=== PATIENT | male | born 1965 | race Caucasian/White ===

== ENCOUNTER 2020-10-22 07:28 | Outpatient (REF) | payer BC, SELFPAY ==
[2020-10-22 11:30] LABS: Glucose Urine UA NEG (NEG); Leukocyte Esterase Urine NEG (NEG); Nitrite Urine NEG (NEG); PH 5.5 (5.0-8.0); Specific Gravity - Urine 1.025 (1.005-1.025); Urine Blood NEG (NEG); Urine Ketones NEG (NEG); Urine Protein NEG (NEG-TRACE)
[2020-10-22 11:32] LABS: Appearance Urine CLEAR; Color Urine YELLOW; Hematocrit 48.6 % (42-52); Hemoglobin 16.1 g/dl (14.0-18.0); Mean Corpuscular HGB Conc 33.1 g/dl (31.0-36.0); Mean Corpuscular Volume 93.5 fL (80-98); Mean Platelet Volume 10.2 fL (9.4-12.4); Platelet Count 221 X10*3/uL (160-400); Red Cell Distribution Width 11.9 % (11.0-16.0); White Blood Count 5.6 X10*3/uL (4.8-10.8)
[2020-10-22 11:55] LABS: Alanine Aminotransferase 32 U/L (0-40); Albumin Level 4.3 g/dL (3.5-5.0); Alkaline Phosphatase 60 U/L (39-117); Anion Gap 12 (12-20); Aspartate Amino Transferase 27 U/L (5-37); Bilirubin Total 0.9 mg/dL (0.0-1.0); Blood Urea Nitrogen 13 mg/dL (9-16); Calcium 8.8 mg/dL (8.4-10.2); Carbon Dioxide 28 mmol/L (22-29); Chloride 105 mmol/L (96-108); Cholesterol 215 mg/dL; Estimated Glomerular Filt Rate > 60; Glucose Fasting 96 mg/dL (60-99); HDL Cholesterol 57 mg/dL; LDL Cholesterol Calculated 138 mg/dl; Potassium 4.4 mmol/L (3.3-5.1); Sodium 141 mmol/L (135-145); Total Protein 7.2 g/dL (6.5-8.0); Triglycerides 102 mg/dL
[2020-10-22 12:22] LABS: Free T4 (Free Thyroxine) 0.81 ng/dL (0.71-1.85); Prostate Specific Antigen Scr 0.82 ng/mL (<0.05-4.0); Thyroid Stimulating Hormone 2.64 uIU/mL (0.32-4.0)
== END 2020-10-22 07:29 | disposition home or self-care (01) ==
LOC: HO.HMGCLDS 07:28
PROVIDERS: PCP Internal Medicine; Visit Provider Internal Medicine
DX: K22.70 Barrett's esophagus without dysplasia (principal); E78.2 Mixed hyperlipidemia; J45.40 Moderate persistent asthma, uncomplicated; Z12.5 Encounter for screening for malignant neoplasm of prostate
CPT/HCPCS: 36415; 80053; 80061; 81003; 84153; 84439; 84443; 85027

== ENCOUNTER 2021-05-26 11:10 | Outpatient (REF) | payer BC, SELFPAY | END 2021-05-26 11:11 | disposition home or self-care (01) | LOC: HO.LNP 11:10 | PROVIDERS: Visit Provider Physician Assistant Medical | DX: J01.90 Acute sinusitis, unspecified (principal); Z20.822 Contact with and (suspected) exposure to COVID-19 | CPT/HCPCS: U0003; U0005 ==

== ENCOUNTER 2021-10-25 08:36 | Outpatient (REF) | payer BC, SELFPAY ==
[2021-10-25 11:38] LABS: Appearance Urine HAZY; Color Urine YELLOW; Glucose Urine UA NEG (NEG); Leukocyte Esterase Urine NEG (NEG); Nitrite Urine NEG (NEG); Specific Gravity - Urine 1.015 (1.005-1.025); Urine Blood NEG (NEG); Urine Ketones NEG (NEG); Urine Protein NEG (NEG-TRACE)
[2021-10-25 11:40] LABS: Hematocrit 46.6 % (42.0-52.0); Hemoglobin 15.4 g/dl (14.0-18.0); Mean Corpuscular Hemoglobin 31.6 pg (27.0-33.0); Mean Corpuscular Volume 95.7 fL (80.0-98.0); Platelet Count 208 X10*3/uL (160-400); Red Blood Count 4.87 X10*6/uL (4.60-5.80); White Blood Count 4.9 X10*3/uL (4.8-10.8)
[2021-10-25 12:08] LABS: RBC Urine 0 /HPF (0); WBC Urine 0 /HPF (0-4)
[2021-10-25 12:10] LABS: Alanine Aminotransferase 24 U/L (0-40); Albumin Level 4.2 g/dL (3.5-5.0); Alkaline Phosphatase 47 U/L (39-117); Anion Gap 11 (12-20); Aspartate Amino Transferase 27 U/L (5-37); Bilirubin Total 1.1 mg/dL (0.0-1.0); Blood Urea Nitrogen 12 mg/dL (9-16); Calcium 9.7 mg/dL (8.4-10.2); Carbon Dioxide 29 mmol/L (22-29); Chloride 107 mmol/L (96-108); Cholesterol 206 mg/dL; Estimated Glomerular Filt Rate > 60; Glucose Fasting 94 mg/dL (60-99); HDL Cholesterol 76 mg/dL; LDL Cholesterol Calculated 116 mg/dl; Potassium 4.6 mmol/L (3.3-5.1); Sodium 142 mmol/L (135-145); Total Protein 6.9 g/dL (6.5-8.0); Triglycerides 70 mg/dL
[2021-10-25 12:38] LABS: TSH reflex Free T4 2.05 uIU/mL (0.32-4.0)
== END 2021-10-25 08:37 | disposition home or self-care (01) ==
LOC: HO.HMGCLDS 08:36
PROVIDERS: PCP Internal Medicine; Visit Provider Internal Medicine
DX: Z00.00 Encounter for general adult medical examination without abnormal findings (principal); E03.9 Hypothyroidism, unspecified
CPT/HCPCS: 36415; 80053; 80061; 81001; 84443; 85027

== ENCOUNTER 2022-10-24 06:55 | Outpatient (REF) | payer BC, SELFPAY ==
[2022-10-24 11:52] LABS: Hemoglobin 15.3 g/dl (14.0-18.0); Mean Corpuscular Hemoglobin 31.4 pg (27.0-33.0); Mean Corpuscular Volume 92.4 fL (80.0-98.0); Mean Platelet Volume 9.6 fL (9.4-12.4); Platelet Count 233 X10*3/uL (160-400); Red Blood Count 4.87 X10*6/uL (4.60-5.80); Red Cell Distribution Width 12.4 % (11.0-16.0); White Blood Count 4.9 X10*3/uL (4.8-10.8)
[2022-10-24 11:54] LABS: Appearance Urine Clear; Color Urine Yellow; Glucose Urine UA Negative (Negative); Leukocyte Esterase Urine Negative (Negative); Nitrite Urine Negative (Negative); PH 8.5 (5.0-9.0); Specific Gravity - Urine 1.015 (1.005-1.025); Urine Blood Negative (Negative); Urine Ketones Negative (Negative); Urine Protein Negative (Neg-Trace)
[2022-10-24 11:59] LABS: Bacteria Urine None Seen (None Seen); Hyaline Casts Urine 0-2 /LPF (0-2); RBC Urine 0-2 /HPF (0-2); Squamous Epithelial Cell Urine 0-2 /HPF (0-2); WBC Urine 0-5 /HPF (0-5)
[2022-10-24 12:31] LABS: Alanine Aminotransferase 20 U/L (0-40); Albumin Level 4.3 g/dL (3.5-5.0); Alkaline Phosphatase 56 U/L (39-117); Anion Gap 12 (12-20); Aspartate Amino Transferase 24 U/L (5-37); Blood Urea Nitrogen 12 mg/dL (9-16); Calcium 9.2 mg/dL (8.4-10.2); Carbon Dioxide 26 mmol/L (22-29); Chloride 109 mmol/L (96-108); Cholesterol 222 mg/dL; Estimated Glomerular Filt Rate > 60; Glucose Fasting 96 mg/dL (60-99); HDL Cholesterol 74 mg/dL; LDL Cholesterol Calculated 125 mg/dl; Potassium 4.4 mmol/L (3.3-5.1); Sodium 143 mmol/L (135-145); Total Protein 6.9 g/dL (6.5-8.0); Triglycerides 115 mg/dL
[2022-10-24 12:48] LABS: Prostate Specific Antigen Scr 1.31 ng/mL (<0.05-4.0)
== END 2022-10-24 06:56 | disposition home or self-care (01) ==
LOC: HO.HMGCLDS 06:55
PROVIDERS: PCP Internal Medicine; Visit Provider Internal Medicine
DX: Z00.00 Encounter for general adult medical examination without abnormal findings (principal); E03.9 Hypothyroidism, unspecified; Z12.5 Encounter for screening for malignant neoplasm of prostate
CPT/HCPCS: 36415; 80053; 80061; 81001; 84153; 84443; 85027

== ENCOUNTER 2023-03-01 12:55 | Outpatient (REF) | payer BC, SELFPAY | END 2023-03-01 12:56 | disposition home or self-care (01) | LOC: HO.SH 12:55 | PROVIDERS: Visit Provider Internal Medicine | DX: Z01.118 Encounter for examination of ears and hearing with other abnormal findings (principal); H90.3 Sensorineural hearing loss, bilateral | CPT/HCPCS: 92557; 92625 ==

== ENCOUNTER 2023-10-24 06:54 | Outpatient (REF) | payer BC, SELFPAY ==
[2023-10-24 11:21] LABS: MANUAL DIFF FLAG NO
[2023-10-24 11:22] LABS: Basophils Percent Auto 0.7 % (0-2); Eosinophils Absolute Auto 0.2 X10*3/uL (0.0-0.4); Eosinophils Percent Auto 4.9 % (0-4); Hematocrit 45.2 % (42.0-52.0); Hemoglobin 15.4 g/dl (14.0-18.0); Imm Gran Abs Auto 0.02 X10*3/uL (0.00-0.03); Imm Gran Pct Auto 0.4 % (0.0-0.4); Lymphocytes Absolute Auto 1.6 X10*3/uL (1.2-4.9); Lymphocytes Percent Auto 35.2 % (20-40); Mean Corpuscular HGB Conc 34.1 g/dl (31.0-36.0); Mean Corpuscular Hemoglobin 31.4 pg (27.0-33.0); Mean Corpuscular Volume 92.2 fL (80.0-98.0); Mean Platelet Volume 9.5 fL (9.4-12.4); Monocytes Absolute Auto 0.3 X10*3/uL (0.1-1.2); Monocytes Percent Auto 7.5 % (2-11); Neutrophils Absolute Auto 2.3 x10*3/uL (2.0-8.3); Neutrophils Percent Auto 51.3 % (45-73); Platelet Count 227 X10*3/uL (160-400); Red Cell Distribution Width 12.1 % (11.0-16.0); White Blood Count 4.5 X10*3/uL (4.8-10.8)
[2023-10-24 11:23] LABS: Appearance Urine Clear; Color Urine Yellow; Glucose Urine UA Negative (Negative); Leukocyte Esterase Urine Negative (Negative); Nitrite Urine Negative (Negative); PH 5.5 (5.0-9.0); Urine Blood Negative (Negative); Urine Ketones Negative (Negative); Urine Protein Negative (Neg-Trace)
[2023-10-24 11:33] LABS: Bacteria Urine None Seen (None Seen); Hyaline Casts Urine 0-2 /LPF (0-2); RBC Urine 0-2 /HPF (0-2); Squamous Epithelial Cell Urine 0-2 /HPF (0-2); WBC Urine 0-5 /HPF (0-5)
[2023-10-24 12:31] LABS: PSA,Total (Free>4and<10) 0.87 ng/mL (0.00-4.00)
[2023-10-24 13:54] LABS: Alanine Aminotransferase 19 U/L (0-40); Albumin Level 4.3 g/dL (3.5-5.0); Alkaline Phosphatase 47 U/L (39-117); Anion Gap 11 (12-20); Aspartate Amino Transferase 23 U/L (5-37); Bilirubin Total 0.7 mg/dL (0.0-1.0); Blood Urea Nitrogen 13 mg/dL (9-16); Calcium 9.7 mg/dL (8.4-10.2); Carbon Dioxide 25 mmol/L (22-29); Chloride 110 mmol/L (96-108); Cholesterol 224 mg/dL (<200); Estimated Glomerular Filt Rate > 60; Glucose Fasting 94 mg/dL (60-99); HDL Cholesterol 86 mg/dL (>40); LDL Cholesterol Calculated 123 mg/dL (<100); Potassium 4.3 mmol/L (3.3-5.1); Sodium 142 mmol/L (135-145); TSH reflex Free T4 2.53 uIU/mL (0.32-4.0); Total Protein 7.2 g/dL (6.5-8.0); Triglycerides 79 mg/dL (<150)
== END 2023-10-24 06:55 | disposition home or self-care (01) ==
LOC: HO.HMGCLDS 06:54
PROVIDERS: PCP Internal Medicine; Visit Provider Internal Medicine
DX: Z00.00 Encounter for general adult medical examination without abnormal findings (principal); Z12.5 Encounter for screening for malignant neoplasm of prostate; E03.9 Hypothyroidism, unspecified; J45.909 Unspecified asthma, uncomplicated
CPT/HCPCS: 36415; 80053; 80061; 81001; 84153; 84443; 85025

== ENCOUNTER 2023-11-15 12:51 | Outpatient (AMB) | payer BC, SELFPAY ==
[2023-11-15 13:01] VITALS: BP 110/66; PULSE 65; O2SAT 97; BMI 25.4
--- NOTE | 2023-11-15 13:01 | A.OFFPC_ITS ---
Vital Signs 11/15/23 13:01 Height 5 ft 9 in Weight 172 lb BMI 25.4 BP 110/66 Blood Pressure Location Lt brachial Position Sitting Pulse 65 Pulse Source Pulse Oximeter Pulse Oximetry (%) 97 Oxygen Delivery Method Room Air Intake Visit Reasons: PE Intake Note: Pt is here today for PE. Allergies No Known Allergies [No Known Allergies*] Allergy (Verified 11/15/23 13:03) Medication List - Last Reconciled 11/15/23 by Reema Guy MD budesonide-formoterol 80-4.5 mcg/actuation 2 puffs PO BID levothyroxine 50 mcg PO DAILY omeprazole 20 mg PO DAILY Tobacco use date assessed: 11/15/23 Dental Screening Dental Screen Date: 11/15/23 Did you have a dental visit in the last 12 months?: Yes Did you have a dental problem in the last 6 months where you did not have access to dental care?: No Was dental information given to patient?: Patient has dentist HPI PE HPI Details Pt presents for PE. PT c/o chronic R shoulder pain for years getting w orse for the last few months. Patient denies any recent injury. The pain is worse when patient is trying to lift or carry something heavy. FORMERLY [facility], [facility]–1983 Medical History (Updated 11/15/23 @ 13:48 by Reema Guy MD) Leg pain Annual physical exam Hyperlipidemia ETOH abuse Asthma Allergic rhinitis Esophagitis Genital herpes Surgical History H/O colonoscopy History of esophagogastroduodenoscopy (EGD) Social History Housing: House Alcohol intake: current Alcohol intake frequency: a few times a week Patient Tobacco Use Status: Never used Tobacco e-Cigarette/Vaping Use: Never Used Current occupational status: employed Cognitive needs: No Hearing needs: No Vision needs: No Questionnaire PHQ-9 Over the last 2 weeks, how often have you been bothered by any of the following problems? 1. Little interest or pleasure in doing things: not at all 2. Feeling down, depressed, or hopeless: not at all 3. Trouble falling or staying asleep, or sleeping too much: not at all 4. Feeling tired or having little energy: not at all 5. Poor appetite or overeating: not at all 6. Feeling bad about yourself - or that you are a failure or have let yourself or your family down: not at all 7. Trouble concentrating on things, such as reading the newspaper or watching television: not at all 8. Moving or speaking so slowly that other people could have noticed. Or the opposite - being so fidgety or restless that you have been moving around a lot more than usual: not at all 9. Thoughts that you would be better off or of hurting yourself in some way: not at all Total score: 0 Depression Screening Interpretation: Negative Depression Screening Done: Yes 45272 - PHQ-9 Billing: Yes Source: Developed by Drs. Contreras Booker, Alejandra Chowdary, Ashish Contreras and colleagues, with an educational leo from [employer]. Thrive Questionnaire Date Thrive assessed: 11/15/23 I am a: Patient What is your living situation today?: I have a steady place to live Within the past 12 months, did the food you bought not last and you didn't have the money to get more?: Never true Within the past 12 months, did you worry whether your food would run out before you got money to buy more?: Never true Do you have trouble paying for medicines?: No Do you have trouble getting transportation to medical appointments?: No Do you have trouble paying your heating and electricity bill?: No Do you have trouble taking care of your child, family member or friend?: No Do you have trouble with day-to-day activities such as bathing, preparing meals, shopping, managing finances, etc.?: No Are you currently unemployed and looking for a job?: No Are you interested in more education?: No Please select the resources that you would like help with: None Currently or been in a relationship where the following occur: no concerns reported THRIVE Score: 0 AUDIT C Alcohol Use Questionnaire (AUDIT-C) 1. How often do you have a drink containing alcohol?: 4 or more times a week 2. How many drinks containing alcohol do you have on a typical day when you are drinking?: 1 or 2 3. How often do you have six or more drinks on one occasion?: Monthly Total Score: 6 LACEY-7 AMB Questionnaire LACEY-7 Date LACEY - 7 assessed: 11/15/23 Feeling nervous, anxious, or on edge: 0 = Not at all Not being able to stop or control worryin = Not at all Worrying too much about different things: 0 = Not at all Trouble relaxin = Not at all Being so restless that it is hard to sit still: 0 = Not at all Becoming easily annoyed or irritable: 0 = Not at all Feeling afraid as if something awful might happen: 0 = Not at all Total LACEY-7 score (0-4 normal; 5-9 mild; 10-14 moderate; 15-21 severe): 0 Source: Developed by Drs. Contreras Booker, Alejandra Chowdary, Ashish Contreras and colleagues, with an educational leo from [employer]. Review of Systems Const All systems reviewed & are unremarkable except as noted in HPI and below Reports no additional complaints Eyes Reports no additional complaints ENT Reports no additional complaints Card Reports no additional complaints Resp Reports no additional complaints GI Reports no additional complaints Reports no additional complaints Physical exam (Primary Care) Vital Signs: Last Vital Signs Pulse 65 11/15/23 13:01 BP 110/66 11/15/23 13:01 Pulse Ox 97 11/15/23 13:01 Oxygen Delivery Method Room Air 11/15/23 13:01 BMI result Body Mass Index 25.4 Tobacco/Smoking Status: Tobacco use Status Tobacco use date assessed 11/15/23 11/15/23 13:09 Patient Tobacco Use Status Never used Tobacco 11/15/23 13:09 e-Cigarette/Vaping Use Never Used 11/15/23 13:09 PHQ-9: PHQ-9 Score PHQ-9: Total score 0 11/15/23 13:10 Depression Screening Interpretation: Negative Thrive Assessment: Date of Thrive Assessment Date Thrive assessed 11/15/23 11/15/23 13:10 Currently or been in a relationship where the following occur: no concerns reported Const General: no acute distress HENMT Head: Yes normal to inspection Ears: hearing grossly normal bilaterally Face and sinus: Yes normal facial exam Throat: Yes posterior oropharynx normal Neck Neck: Yes supple Resp Effort & Inspection: normal respiratory effort Auscultation: clear to auscultation bilaterally Cardio Rhythm: regular rhythm Heart sounds: S1 normal heart sound present and S2 normal heart sound present GI Inspection: Yes normal to inspection Palpation (GI): Soft to palpation Percussion: Yes normal to percussion Auscultation: normal bowel sounds Extrem Other: Anterior aspect tenderness on the right shoulder there is no joint deformity swelling, there slightly decreased range of motion with abduction Assessment and Plan Assessment & Plan (1) Shoulder pain, right: Code(s): M25.511 - Pain in right shoulder Plan: Check shoulder x-ray, refer for physical therapy if the pain persists patient MRI will be obtained (2) Tinnitus: Comment: SYMMETRICAL MODERATE HEARING LOSS 11/09 Code(s): H93.19 - Tinnitus, unspecified ear (3) Asthma: Code(s): J45.909 - Unspecified asthma, uncomplicated Plan: Continue Symbicort (4) Hypothyroidism: Code(s): E03.9 - Hypothyroidism, unspecified Plan: Continue levothyroxine (5) Annual physical exam: Code(s): Z00.00 - Encounter for general adult medical examination without abnormal findings Plan: Well-balanced diet regular physical activity discussed with the patient. Continue PPI for chronic GERD Chang's esophagus follow-up with the GI for endoscopy and colonoscopy Orders: Orders PT Evaluation and Treatment Today M25.511 - Pain in right shoulder Comprehensive [place]. Panel Fast 1 Year E03.9 - Hypothyroidism, unspecified, J45.909 - Unspecified asthma, uncomplicated, Z00.00 - Encounter for general adult medical examination without abnormal findings Complete Blood Count Auto Diff 1 Year E03.9 - Hypothyroidism, unspecified, J45.909 - Unspecified asthma, uncomplicated, Z00.00 - Encounter for general adult medical examination without abnormal findings TSH reflex Free T4 1 Year E03.9 - Hypothyroidism, unspecified, J45.909 - Unspecified asthma, uncomplicated, Z00.00 - Encounter for general adult medical examination without abnormal findings UA w Microscopic 1 Year E03.9 - Hypothyroidism, unspecified, J45.909 - Unspecified asthma, uncomplicated, Z00.00 - Encounter for general adult medical examination without abnormal findings XR shoulder RT min 2V Today M25.511 - Pain in right shoulder Lipid Panel 1 Year E03.9 - Hypothyroidism, unspecified, J45.909 - Unspecified asthma, uncomplicated, Z00.00 - Encounter for general adult medical examination without abnormal findings PSA,Total (Free>4and<10) 1 Year E03.9 - Hypothyroidism, unspecified, J45.909 - Unspecified asthma, uncomplicated, Z00.00 - Encounter for general adult medical examination without abnormal findings Coding Level of Care Code Est Pt Prev Care 40-64y(53586) Diagnoses Shoulder pain, right M25.511 Tinnitus H93.19 Asthma J45.909 Hypothyroidism E03.9 Annual physical exam Z00.00
== END 2023-11-15 13:48 | disposition home or self-care (01) ==
PROVIDERS: Visit Provider Internal Medicine
DX: M25.511 Pain in right shoulder (principal); H93.19 Tinnitus, unspecified ear; J45.909 Unspecified asthma, uncomplicated; E03.9 Hypothyroidism, unspecified; Z00.00 Encounter for general adult medical examination without abnormal findings
CPT/HCPCS: 99396

== ENCOUNTER 2023-11-19 15:26 | Outpatient (REF) | payer BC, SELFPAY ==
--- NOTE | ~2023-11-19 | XR_ITS ---
EXAMINATION: XR SHOULDER, RIGHT CLINICAL INFORMATION: Right shoulder pain COMPARISON: None available. TECHNIQUE: AP external rotation, Grashey, scapular Y, and axillary views of the right shoulder. FINDINGS: Acromioclavicular joint space narrowing. Humeral joint is preserved. No fracture or dislocation. Visualized lung and ribs are unremarkable. XR/XR shoulder RT min 2V IMPRESSION: Mild degenerative changes.
== END 2023-11-19 15:27 | disposition home or self-care (01) ==
LOC: HO.HMGCX 15:26
PROVIDERS: PCP Internal Medicine; Visit Provider Internal Medicine
DX: M25.511 Pain in right shoulder (principal)
CPT/HCPCS: 73030

== ENCOUNTER 2024-08-18 09:42 | Outpatient (REF) | payer BC, SELFPAY ==
[2024-08-18 16:08] LABS: Influenza A PCR NEGATIVE (Negative); Influenza B PCR NEGATIVE (Negative); Resp Syncy Virus RNA Qual PCR NEGATIVE (Negative); SARS COV2 PCR INHOUSE NEGATIVE (Negative)
== END 2024-08-18 09:43 | disposition home or self-care (01) ==
LOC: HO.LAB 09:42
PROVIDERS: PCP Internal Medicine; Visit Provider Physician Assistant
DX: J06.9 Acute upper respiratory infection, unspecified (principal)
CPT/HCPCS: 0241U

== ENCOUNTER 2024-08-18 09:42 | Outpatient (AMB) | payer BC, SELFPAY ==
--- NOTE | 2024-08-18 10:32 | AM.OFFWIN_ITS ---
Intake Vital Signs 08/18/24 10:36 Height 5 ft 9 in Weight 165 lb BMI 24.4 BP 130/90 H Blood Pressure Location Rt brachial Position Sitting Pulse 59 Pulse Source Pulse Oximeter Temp 97.8 F Temp Source Oral Pulse Oximetry (%) 98 Oxygen Delivery Method Room Air Intake Visit Reasons: EP Head cold symptoms Intake Note: Patient here for head congestion and cough that has been present since before katt. Patient Tobacco Use Status: Never used Tobacco Allergies No Known Allergies [No Known Allergies*] Allergy (Verified 08/18/24 10:36) Do you need a note to return to daycare/school/sports/work: No HPI HPI Comments History of Present Illness Details History - The patient is a 58-year-old male pres enting with upper respiratory symptoms, including nasal congestion and cough. - Approximately seven days ago, he devel oped nasal congestion with yellow discharge, primarily present in the mornings. - His symptoms progressed over the weeke nd to include coughing. He denies any febrile episodes. - Household members have exhibited simil ar symptoms, suggesting potential communicable viral etiology. - The patient performed a COVID-19 test, which resulted negative. - Current symptom management includes us e of [id number] medications: DayQuil, NyQuil, and Mucinex D, which provided limited symptom relief. - The patient has a history of asthma, m anaged with Budesonide inhaler used once daily mornings, and no exacerbation of asthma symptoms has been noted. Physical Exam General: Cooperative, healthy appearing, comfortable and no acute distress Orientation/consciousness: Patient oriented x3 Limitations: No limitations Head: Normal to inspection Ears: Hearing grossly normal bilaterally, external ears normal and TM's normal bilaterally, some cerumen present in the left ear Nose: Normal external nose present, Normal nares present and No nasal discharge present Face and sinus: Normal facial exam and Yes sinuses nontender Mouth: Normal oral and palatal mucosa present and moist mucous membranes Throat: Yes tonsils normal, Yes uvula midline. Posterior oropharynx erythema Eyes: Appearance normal, both eyes and all related structures Neck: Normal visual inspection Respiratory: Clear to auscultation bilaterally. Normal respiratory effort, able to speak in complete sentences, no respiratory distress, not tachypneic, no tripod positioning and no use of accessory muscles Cardiovascular: Regular rate and rhythm. Normal S1 and S2 Skin: No rashes or lesions noted Neuro: Patient oriented x3 Extremities: Normal to inspection and Yes no clubbing, cyanosis or edema [facility] Medical History (Updated 08/18/24 @ 11:01 by Argelia Joel PA-C) Leg pain Annual physical exam Hyperlipidemia ETOH abuse Asthma Allergic rhinitis Esophagitis Genital herpes Surgical History H/O colonoscopy History of esophagogastroduodenoscopy (EGD) Social History Housing: House Alcohol intake: current Alcohol intake frequency: a few times a week Patient Tobacco Use Status: Never used Tobacco e-Cigarette/Vaping Use: Never Used Current occupational status: employed Cognitive needs: No Hearing needs: No Vision needs: No Review of Systems Const All systems reviewed & are unremarkable except as noted in HPI and below Physical Exam Vital Signs: Last Vital Signs Temp 97.8 F 08/18/24 10:36 Pulse 59 08/18/24 10:36 BP 130/90 H 08/18/24 10:36 Pulse Ox 98 08/18/24 10:36 Oxygen Delivery Method Room Air 08/18/24 10:36 BMI result Body Mass Index 24.4 Assessment & Plan Assessment & Plan (1) URI, acute: Code(s): J06.9 - Acute upper respiratory infection, unspecified Plan: Based on the presenting symptoms and recent negative COVID-19 test, an acute upper respiratory infection is suspected. Covid, influenza and RSV testing were conducted to verify viral involvement. The patient is advised to continue taking OTC medications for symptomatic relief, such as DayQuil and NyQuil, along with M ucinex D for congestion. Additionally, he should initiate Flonase nasal spray angled correctly to assist with congestion. If viral tests return negative and symptoms persist, a Z-Manuelito will be initiated to cover possible walking/atypical pneumonia, taking into account the prevalent nature of atypical bacterial pneumonia currently. With no exacerbation of asthma symptoms reported, he is advised to maintain his Budesonide inhaler regimen. For earwax management, [id number] Debrox drops are recommended. Follow-up is contingent on symptom progression or improvement, with reevaluation considered should conditions not resolve or if new symptoms arise. Patient was informed and verbally consented to the use of an ambient scribe for clinic note documentation during this visit Orders: Orders SARS-CoV2/FLU/RSV Today J06.9 - Acute upper respiratory infection, unspecified Medications: New azithromycin For 250 mg dose pack: take 500 mg today (day 1), then 250 mg for 4 days (days 2-5) PO 6 tabs 0RF Coding Level of Care Code Est Pt Level 3 (28111) Diagnoses URI, acute J06.9
[2024-08-18 10:36] VITALS: BP 130/90; PULSE 59; TEMP 36.6; O2SAT 98; BMI 24.4
== END 2024-08-18 11:10 | disposition home or self-care (01) ==
PROVIDERS: PCP Internal Medicine; Visit Provider Physician Assistant
DX: J06.9 Acute upper respiratory infection, unspecified (principal)

== ENCOUNTER 2025-01-01 06:09 | Outpatient (REF) | payer BC, SELFPAY ==
--- OUTSIDE RECORDS SUMMARY | 2025-01-01 06:13 | XMS_ITS | Clinical Summary ---
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 Name Role Phone Unavailable Primary Care Provider Unavailabl e Social History Tobacco Use Types Packs/Day Years Used Date Smoking Tobacco: Never Assessed Sex and Gender Information Value Date Recorded Sex Assigned at Not on file Legal Sex Male 6:00 PM EST Gender Identity Not on file Sexual Orientation Not on file Plan of Treatment Health Maintenance Due Date Last Done Comments DTaP,Tdap,and Td Vaccines (1 - Tdap) 1986 Hepatitis B Vaccines (1 of 3 - 19+ 3-dose series) 1986 Pneumococcal Vaccine: 50+ Ye ars (1 of 1 - PCV) 2017 Zoster Vaccines (1 of 2) 2017 Cholesterol Screening (Lipid Panel) 07/22/2022 Colorectal Cancer Screening: Colonoscopy 07/22/2022 Depression Screening 07/22/2022 HIV Screening 07/22/2022 Hepatitis C Screening 07/22/2022 Social Influencers of Health Screening 07/22/2022 COVID-19 Vaccine (2023-2 5 season) 2024 Influenza Vaccine (Season Ended) 2025 HIB Vaccines Aged Out No longer eligi ble based on patient's age to complete this topic HPV Vaccines Aged Out No longer eligi ble based on patient's age to complete this topic Hepatitis A Vaccines Aged Out No long er eligible based on patient's age to complete this topic IPV Vaccines Aged Out No longer eligi ble based on patient's age to complete this topic MMR Vaccines Aged Out No longer eligi ble based on patient's age to complete this topic Meningococcal ACWY Vaccine Aged Out N o longer eligible based on patient's age to complete this topic Meningococcal B Vaccine Aged Out No l onger eligible based on patient's age to complete this topic Pneumococcal Vaccine: Pediat rics (0 to 5 Years) and At-Risk Patients (6 to 64 Years) Aged Out No longer eligible b ased on patient's age to complete this topic RSV Immunization Patients Un lavern 20 months Aged Out No longer eligible b ased on patient's age to complete this topic Varicella Vaccines Aged Out No longer eligible based on patient's age to complete this topic
[2025-01-01 10:39] LABS: MANUAL DIFF FLAG NO
[2025-01-01 10:47] LABS: Basophils Percent Auto 0.7 % (0-2); Eosinophils Absolute Auto 0.2 X10*3/uL (0.0-0.4); Eosinophils Percent Auto 5.1 % (0-4); Hematocrit 42.3 % (42.0-52.0); Hemoglobin 14.6 g/dl (14.0-18.0); Imm Gran Abs Auto 0.03 X10*3/uL (0.00-0.03); Imm Gran Pct Auto 0.7 % (0.0-0.4); Lymphocytes Absolute Auto 1.5 X10*3/uL (1.2-4.9); Lymphocytes Percent Auto 34.8 % (20-40); Mean Corpuscular HGB Conc 34.5 g/dl (31.0-36.0); Mean Corpuscular Hemoglobin 31.9 pg (27.0-33.0); Mean Corpuscular Volume 92.4 fL (80.0-98.0); Mean Platelet Volume 9.1 fL (9.4-12.4); Monocytes Absolute Auto 0.4 X10*3/uL (0.1-1.2); Monocytes Percent Auto 8.1 % (2-11); Neutrophils Absolute Auto 2.2 x10*3/uL (2.0-8.3); Neutrophils Percent Auto 50.6 % (45-73); Platelet Count 221 X10*3/uL (160-400); Red Blood Count 4.58 X10*6/uL (4.60-5.80); Red Cell Distribution Width 12.4 % (11.0-16.0); White Blood Count 4.3 X10*3/uL (4.8-10.8)
[2025-01-01 11:08] LABS: Alanine Aminotransferase 30 U/L (0-40); Albumin Level 4.2 g/dL (3.5-5.0); Alkaline Phosphatase 48 U/L (39-117); Anion Gap 13 (12-20); Aspartate Amino Transferase 37 U/L (5-37); Bilirubin Total 0.8 mg/dL (0.0-1.0); Blood Urea Nitrogen 11 mg/dL (9-16); Calcium 9.2 mg/dL (8.4-10.2); Carbon Dioxide 23 mmol/L (22-29); Chloride 110 mmol/L (96-108); Cholesterol 202 mg/dL (<200); Estimated Glomerular Filt Rate > 60; Glucose Fasting 88 mg/dL (60-99); HDL Cholesterol 84 mg/dL (>40); LDL Cholesterol Calculated 101 mg/dL (<100); Potassium 4.1 mmol/L (3.3-5.1); Sodium 142 mmol/L (135-145); Total Protein 6.9 g/dL (6.5-8.0); Triglycerides 85 mg/dL (<150)
[2025-01-01 11:14] LABS: Appearance Urine Clear; Color Urine Yellow; Glucose Urine UA Negative (Negative); Leukocyte Esterase Urine Negative (Negative); Nitrite Urine Negative (Negative); Urine Blood Negative (Negative); Urine Ketones Negative (Negative); Urine Protein Negative (Neg-Trace)
[2025-01-01 11:18] LABS: Bacteria Urine None Seen (None Seen); Hyaline Casts Urine 0-2 /LPF (0-2); RBC Urine 0-2 /HPF (0-2); Squamous Epithelial Cell Urine 0-2 /HPF (0-2); WBC Urine 0-5 /HPF (0-5)
[2025-01-01 11:19] LABS: PSA,Total (Free>4and<10) 1.29 ng/mL (0.00-4.00)
[2025-01-01 11:27] LABS: TSH reflex Free T4 3.91 uIU/mL (0.32-4.0)
== END 2025-01-01 06:10 | disposition home or self-care (01) ==
LOC: HO.HMGCLDS 06:09
PROVIDERS: PCP Internal Medicine; Visit Provider Internal Medicine
DX: I10 Essential (primary) hypertension (principal); Z00.00 Encounter for general adult medical examination without abnormal findings; E03.9 Hypothyroidism, unspecified; J45.909 Unspecified asthma, uncomplicated; Z12.5 Encounter for screening for malignant neoplasm of prostate
CPT/HCPCS: 36415; 80053; 80061; 81001; 84153; 84443; 85025

== ENCOUNTER 2025-01-20 12:58 | Outpatient (AMB) | payer BC, SELFPAY ==
--- NOTE | 2025-01-20 13:27 | MHC.PC.OV ---
Vital Signs 01/20/25 13:29 Height 5 ft 9 in Weight 169 lb BMI 25.0 BP 130/80 Blood Pressure Location Lt brachial Position Sitting Respiration 18 Pulse 57 Pulse Source Pulse Oximeter Temp 98.3 F Temp Source Oral Pulse Oximetry (%) 98 Oxygen Delivery Method Room Air Intake Visit Reasons: PE Intake Note: Pt is here today for PE. Allergies No Known Allergies [No Known Allergies*] Allergy (Verified 01/20/25 13:30) Medication List - Last Reconciled 01/20/25 by Reema uGy MD budesonide-formoterol 80-4.5 mcg/actuation 2 puffs PO BID levothyroxine 50 mcg PO DAILY omeprazole 20 mg PO DAILY Tobacco use date assessed: 01/20/25 Dental Screening Dental Screen Date: 01/20/25 Did you have a dental visit in the last 12 months?: Yes Did you have a dental problem in the last 6 months where you did not have access to dental care?: No Was dental information given to patient?: Patient has dentist HPI PE HPI Details Patient [facility] for [facility] Medical History (Updated 01/20/25 @ 16:08 by Reema Guy MD) Hypothyroidism Leg pain Annual physical exam Hyperlipidemia ETOH abuse Asthma Allergic rhinitis Esophagitis Genital herpes Surgical History (Updated 01/20/25 @ 16:06 by Reema Guy MD) H/O colonoscopy History of esophagogastroduodenoscopy (EGD) Social History Housing: House Alcohol intake: current Alcohol intake frequency: a few times a week Patient Tobacco Use Status: Never used Tobacco e-Cigarette/Vaping Use: Never Used service: No Current occupational status: employed Cognitive needs: No Hearing needs: No Vision needs: No Questionnaire PHQ-9 Over the last 2 weeks, how often have you been bothered by any of the following problems? 1. Little interest or pleasure in doing things: not at all 2. Feeling down, depressed, or hopeless: not at all 3. Trouble falling or staying asleep, or sleeping too much: not at all 4. Feeling tired or having little energy: not at all 5. Poor appetite or overeating: not at all 6. Feeling bad about yourself - or that you are a failure or have let yourself or your family down: not at all 7. Trouble concentrating on things, such as reading the newspaper or watching television: not at all 8. Moving or speaking so slowly that other people could have noticed. Or the opposite - being so fidgety or restless that you have been moving around a lot more than usual: not at all 9. Thoughts that you would be better off or of hurting yourself in some way: not at all Total score: 0 Depression Screening Interpretation: Negative Depression Screening Done: Yes 43238 - PHQ-9 Billing: Yes Source: Developed by Drs. Contreras Booker, Alejandra Chowdary, Ashish Contreras and colleagues, with an educational leo from [employer]. Thrive Questionnaire Date Thrive assessed: 01/20/25 I am a: Patient What is your living situation today?: I have a steady place to live Within the past 12 months, did the food you bought not last and you didn't have the money to get more?: Never true Within the past 12 months, did you worry whether your food would run out before you got money to buy more?: Never true Do you have trouble paying for medicines?: No Do you have trouble getting transportation to medical appointments?: No Do you have trouble paying your heating and electricity bill?: No Do you have trouble taking care of your child, family member or friend?: No Do you have trouble with day-to-day activities such as bathing, preparing meals, shopping, managing finances, etc.?: No Are you currently unemployed and looking for a job?: No Are you interested in more education?: No Please select the resources that you would like help with: None Currently or been in a relationship where the following occur: No concerns reported THRIVE Score: 0 AUDIT C Alcohol Use Questionnaire (AUDIT-C) 1. How often do you have a drink containing alcohol?: 4 or more times a week 2. How many drinks containing alcohol do you have on a typical day when you are drinking?: 3 or 4 3. How often do you have six or more drinks on one occasion?: Weekly Total Score: 8 LACEY-7 AMB Questionnaire LACEY-7 Date LACEY - 7 assessed: 01/20/25 Feeling nervous, anxious, or on edge: 0 = Not at all Not being able to stop or control worryin = Not at all Worrying too much about different things: 0 = Not at all Trouble relaxin = Not at all Being so restless that it is hard to sit still: 0 = Not at all Becoming easily annoyed or irritable: 0 = Not at all Feeling afraid as if something awful might happen: 0 = Not at all Total LACEY-7 score (0-4 normal; 5-9 mild; 10-14 moderate; 15-21 severe): 0 Source: Developed by Drs. Contreras Booker, Alejandra Chowdary, Ashish Contreras and colleagues, with an educational leo from [employer]. LACEY-7 Assessment Billing LACEY-7 Assessment Tool: LACEY-7 Assessment 33116 Review of Systems Const All systems reviewed & are unremarkable except as noted in HPI and below Eyes Reports no additional complaints ENT Reports no additional complaints Card Reports no additional complaints Resp Reports no additional complaints GI Reports no additional complaints Reports no additional complaints Physical exam (Primary Care) Vital Signs: Last Vital Signs Temp 98.3 F 01/20/25 13:29 Pulse 57 01/20/25 13:29 Resp 18 01/20/25 13:29 BP 130/80 01/20/25 13:29 Pulse Ox 98 01/20/25 13:29 Oxygen Delivery Method Room Air 01/20/25 13:29 BMI result Body Mass Index 25.0 Tobacco/Smoking Status: Tobacco use Status Tobacco use date assessed 01/20/25 01/20/25 13:36 Patient Tobacco Use Status Never used Tobacco 01/20/25 13:36 e-Cigarette/Vaping Use Never Used 01/20/25 13:36 PHQ-9: PHQ-9 Score PHQ-9: Total score 0 01/20/25 13:42 Depression Screening Interpretation: Negative Thrive Assessment: Date of Thrive Assessment Date Thrive assessed 01/20/25 01/20/25 13:36 Currently or been in a relationship where the following occur: No concerns reported Const General: no acute distress HENMT Head: Yes normal to inspection Ears: hearing grossly normal bilaterally Face and sinus: Yes normal facial exam Throat: Yes posterior oropharynx normal Eyes General: appearance normal, both eyes and all related structures Neck Neck: Yes no lymphadenopathy and Yes supple Resp Effort & Inspection: normal respiratory effort Auscultation: clear to auscultation bilaterally Cardio Rhythm: regular rhythm Heart sounds: S1 normal heart sound present and S2 normal heart sound present GI Inspection: Yes normal to inspection Palpation (GI): Soft to palpation Percussion: Yes normal to percussion Auscultation: normal bowel sounds Coding Level of Care Code Est Pt Prev Care 40-64y(56557) Diagnoses Hypothyroidism E03.9 Asthma J45.909 Annual physical exam Z00.00 Esophagitis K20.90 Additional Codes LACEY-7 Assessment Billing - LACEY-7 Assessment Tool: LACEY-7 Assessment 98039 ([id number]) PHQ-9 - 00811 - PHQ-9 Billing: Yes ([id number]) Assessment & Plan Assessment & Plan (1) Hypothyroidism: Code(s): E03.9 - Hypothyroidism, unspecified Category: Medical Plan: Continue levothyroxine (2) Asthma: Code(s): J45.909 - Unspecified asthma, uncomplicated Category: Medical Plan: Continue Symbicort (3) Annual physical exam: Code(s): Z00.00 - Encounter for general adult medical examination without abnormal findings Category: Medical Plan: Well-balanced diet regular physical activity discussed with the patient (4) Esophagitis: Comment: with short segment of Chang's no dysplasia, last EGD 12/2023, repeat 3 yrs , on PPI Code(s): K20.90 - Esophagitis, unspecified without bleeding Category: Medical Plan: Continue PPI Medications: Refilled budesonide-formoterol 80-4.5 mcg/actuation 2 puffs PO BID 30.6 grams 3RF levothyroxine 50 mcg PO DAILY 90 tabs 3RF E03.9 - Hypothyroidism, unspecified omeprazole 20 mg PO DAILY 90 caps 3RF
[2025-01-20 13:29] VITALS: BP 130/80; PULSE 57; RESP 18; TEMP 36.8; O2SAT 98; BMI 25.0
--- OUTSIDE RECORDS SUMMARY | 2025-01-20 14:23 | XMS_ITS | Clinical Summary ---
Author Organization [facility] ity Address [address] [place] [address] Care Team Providers Care Inspector Brake Lining Name Role Phone Unavailable Primary Care Provider [...]
== END 2025-01-20 13:50 | disposition home or self-care (01) ==
LOC: HO.HMCC 12:59
PROVIDERS: PCP Internal Medicine; Visit Provider Internal Medicine
DX: E03.9 Hypothyroidism, unspecified (principal); J45.909 Unspecified asthma, uncomplicated; Z00.00 Encounter for general adult medical examination without abnormal findings; K20.90 Esophagitis, unspecified without bleeding

== ENCOUNTER → 2025-01-20 12:58 | Outpatient (BNVA) | payer BC, SELFPAY | PROVIDERS: PCP Internal Medicine; Visit Provider Internal Medicine | DX: Z00.00 Encounter for general adult medical examination without abnormal findings (principal); K20.90 Esophagitis, unspecified without bleeding; E03.9 Hypothyroidism, unspecified; J45.909 Unspecified asthma, uncomplicated | CPT/HCPCS: 96127 ==